=== PATIENT | male | born 1965 | race Caucasian/White ===

== ENCOUNTER 2017-07-31 09:03 | Day surgery (SDC) | payer OTHER ==
[2017-07-22 12:12] VITALS: BMI 29.8
[2017-07-31] MEDS ORDERED: BUPIVACAINE HCL/PF 2.5 MG/ML - 30 ML VIAL IJ ONE (10:48)
[2017-07-31] MEDS ORDERED: EPINEPHrine 1:1,000 1 MG/1 ML - 30ML VIAL (INJECTION) ONE (11:00)
[2017-07-31] MEDS ORDERED: PROPOFOL 20 ML ONE ×5 (11:10→11:14)
[2017-07-31] MEDS ORDERED: MIDAZOLAM HCL 2 MG/2 ML SINGLE DOSE VIAL ONE (11:10)
[2017-07-31] MEDS ORDERED: ceFAZolin SODIUM 1 GM VIAL ONE (11:35)
[2017-07-31] MEDS ORDERED: ONDANSETRON 4 MG/2 ML VIAL ONE (11:40)
[2017-07-31] MEDS ORDERED: DEXAMETHASONE SOD PHOSPHATE 4 MG/1 ML VIAL ONE (11:40)
[2017-07-31] MEDS ORDERED: KETOROLAC TROMETHAMINE 30 MG/1 ML VIAL ONE (11:46)
[2017-07-31] MEDS ORDERED: BUPIVACAINE HCL/PF 0.25% (2.5MG/ML) 10 ML VIAL IJ ONE (11:58)
[2017-07-31] MEDS ORDERED: oxyCODONE HCL 5 MG TABLET PO PRN (12:13)
[2017-07-31] MEDS ORDERED: ONDANSETRON 4 MG/2 ML VIAL IVPUSH PRN (12:13)
[2017-07-31] MEDS ORDERED: LACTATED RINGERS SOLUTION 1,000 ML IV SCH (12:15)
[2017-07-31 12:30] VITALS: TEMP 97.6
--- NOTE | 2017-07-31 12:30 | OP ---
DATE OF OPERATION: 07/31/2017 PREOPERATIVE DIAGNOSIS: Right knee medial meniscus tear. POSTOPERATIVE DIAGNOSIS: Right knee medial meniscus tear, osteoarthritis. PROCEDURE: Right knee arthroscopy, partial medial meniscectomy. SURGEON: Huy Valencia MD SLITTER AND REWINDER: Yadi Mason, physician's city carrier assistant whose skillful assistance was necessary for the safe and timely performance of this procedure. ANESTHESIA: General. POSTOPERATIVE CONDITION: Stable. COMPLICATIONS: None. INDICATIONS: This is a pleasant gentleman who is suffering from medial knee pain. MRI demonstrated a complex medial meniscus tear. Treatment options including nonoperative versus operative management were discussed. Operative risks were discussed in detail including bleeding, infection, neurovascular injury, need for further surgery, postoperative pain and stiffness, progression of osteoarthritis. We discussed medical risks such as heart attack, stroke, DVT, PE, and . I addressed recovery from surgery. We discussed that if he was suffering from osteoarthritis pain afterwards that multiple management options were available for this. The patient voiced understanding and elected to proceed. DESCRIPTION OF PROCEDURE: The patient was brought to the operating room where general anesthesia was administered. The right lower extremity was then prepped and draped in the usual sterile fashion. A preoperative dose of antibiotics was given, and the usual time-out procedure was performed. The portal sites were now marked out. The lateral portal was established using an 11 blade. The arthroscope was now passed into the knee. Examination of the patellofemoral joint demonstrated some full-thickness cartilage fissuring and loss over the trochlea and some partial-thickness fraying over the patella. I passed the knee arthroscope into the notch and demonstrated into ACL and PCL. The arthroscope was now passed to the medial compartment. A medial portal was established under spinal needle localization. A complex tear was seen involving the posterior horn and going into the body of the medial meniscus. Also noted on the medial femoral condyle was a near full-thickness streak of the articular cartilage. There was fraying of the tibial surface. Meniscus was now debrided using a combination of meniscal biters and a shaver. The arthroscope was now passed to the lateral compartment. Here, the femoral surface also demonstrated partial thickness fissuring of the articular surface. The tibial side showed some mild fraying. The meniscus was intact, probed, and found to be stable. Excess fluid was now withdrawn from the knee. The portals were sutured using 3-0 nylon. A compressive dressing was placed. The patient was extubated and transferred to the recovery room in stable condition. Aleks [id number]
[2017-07-31] MEDS ORDERED: oxyCODONE HCL 5 MG TABLET ONE (13:11)
[2017-07-31 14:41] VITALS: BP 132/79; PULSE 70
== END 2017-07-31 14:30 | disposition home or self-care (01) ==
LOC: FASU 09:03
PROVIDERS: ATTEND Orthopaedic Surgery Sports Medicine
PROC: 0SBC4ZZ Excision of Right Knee Joint, Percutaneous Endoscopic Approach (ICD-10-PCS; principal; 2017-07-31 11:42)
DX: S83.241A Other tear of medial meniscus, current injury, right knee, initial encounter (principal); M17.11 Unilateral primary osteoarthritis, right knee; X58.XXXA Exposure to other specified factors, initial encounter; Y93.9 Activity, unspecified; Y92.9 Unspecified place or not applicable
CPT/HCPCS: 94760